=== PATIENT | male | born 1970 | race African-American/Black ===

== ENCOUNTER 2025-06-28 00:48 | Emergency (ER) | payer SELFPAY ==
[~2025-06-28] VITALS: Ht 185.4 cm; Wt 100.0 kg
[2025-06-28 00:51] VITALS: TEMP 36.9; O2SAT 97
[2025-06-28 02:10] LABS: BASOPHILS % 0.8 % (0.0-2.0); EOSINOPHILS % 4.9 % (0.0-5.0); HEMATOCRIT. 38.8 % (42.0-52.0); HEMOGLOBIN. 13.2 g/dL (14.0-18.0); LYMPHOCYTES % 50.6 % (20.0-50.0); MEAN PLATELET VOLUME 7.2 fl (7.4-10.4); MONOCYTES % 8.3 % (2.0-8.0); NEUTROPHILS % 35.4 % (40.0-76.0); PLATELET 263 x1000/uL (130-400); RED BLOOD CELL COUNT 4.31 mill/uL (4.7-6.1); RED CELL DISTRIBUTION WIDTH 14.5 % (11.6-14.6)
[2025-06-28 02:17] LABS: CREATININE 1.0 mg/dL (0.6-1.3)
[2025-06-28 02:18] LABS: UREA NITROGEN BLOOD 12 mg/dL (9-23)
[2025-06-28 02:19] LABS: ASPARTATE AMINOTRANSFERASE 61 IU/L (<34)
[2025-06-28 02:20] LABS: BILIRUBIN DIRECT < 0.1 mg/dL (<=3.0); BILIRUBIN TOTAL 0.3 mg/dL (0.1-1.0); PROTEIN TOTAL 6.8 g/dL (6.0-8.3)
[2025-06-28 05:11] LABS: CLARITY URINE CLEAR (CLEAR); COLOR URINE YELLOW (YELLOW); GLUCOSE URINE NEGATIVE (NEGATIVE); KETONES URINE NEGATIVE (NEGATIVE); LEUKOCYTE ESTERASE URINE NEGATIVE (NEGATIVE); NITRITE URINE NEGATIVE (NEGATIVE); OCCULT BLOOD URINE NEGATIVE (NEGATIVE); PH URINE 6.5 (4.5-8.0); PROTEIN URINE NEGATIVE (NEGATIVE); SPECIFIC GRAVITY URINE 1.020 (1.005-1.030); UROBILINOGEN URINE 1.0 E.U./dL (0.2-1.0)
[2025-06-28 05:41] LABS: *AMPHETAMINES SCREEN URINE PRESUMPTIVE POSITIVE (NEGATIVE); *BARBITURATES SCREEN URINE NEGATIVE (NEGATIVE); *BENZODIAZEPINES SCREEN URINE NEGATIVE (NEGATIVE); *COCAINE SCREEN URINE NEGATIVE (NEGATIVE); CANNABINOID URINE SCREEN NEGATIVE (NEGATIVE); ECSTASY MDMA SCREEN URINE NEGATIVE (NEGATIVE); METHADONE URINE SCREEN NEGATIVE (NEGATIVE); OPIATES URINE SCREEN NEGATIVE (NEGATIVE); PHENCYCLIDINE URINE SCREEN NEGATIVE (NEGATIVE)
[2025-06-28] MEDS: OLANZAPINE 10 MG/VIAL IM ONE (07:45)
[2025-06-28] MEDS: LORAZEPAM 2MG/ML UD SYRINGE IM NR (08:00)
[2025-06-28] MEDS: AMLODIPINE 5MG TABLET PO ONE (22:37)
[2025-06-29 10:45] VITALS: BP 144/88; PULSE 89; RESP 16; O2SAT 100
== END 2025-06-29 10:46 | disposition home or self-care (01) ==
LOC: ER 00:48
DX: R45.851 Suicidal ideations (principal); F10.129 Alcohol abuse with intoxication, unspecified; I10 Essential (primary) hypertension; F15.90 Other stimulant use, unspecified, uncomplicated; Z88.8 Allergy status to other drugs, medicaments and biological substances; Z20.822 Contact with and (suspected) exposure to COVID-19; Z79.899 Other long term (current) drug therapy; Y90.2 Blood alcohol level of 40-59 mg/100 ml
CPT/HCPCS: 80076; 80305; 80048; 81003; 80307; 80329; 80320; 85025; 36415; 96372; 99285; 87426; J3490; J2060; Z7610; A6449; G0480